=== PATIENT | female | born 1940 | race African-American/Black ===

== ENCOUNTER 2017-12-04 10:20 | Inpatient (IN) | payer OTHER ==
[~2017-12-04] VITALS: Ht 167.6 cm; Wt 90.7 kg
[~2017-12-04 10:20] MED LIST: ADVIL PM 38 MG-1 TAB PO; AMLODIPINE BESY10 M1 PO; AMLODIPINE BESY10 MG PO; ATENOLOL-CHLOR1 EAC1 PO; ATENOLOL/CHLORT1 TA1 PO; ATENOLOL25 MG PO; CELEBREX100 M1 PO; CELEBREX100 MG PO; CRESTOR 10MG10 MG PO; CRESTOR10 M1 PO; Compazine PO; DAILY VALUE1 EACH PO; K-TAB20 MEQ PO; LASIX20 M1 PO; MAGNESIUM OXID400 MG PO; MIRALAX17 G1 PO; PANTOPRAZOLE SO40 M1 PO; PANTOPRAZOLE SO40 MG PO; PEPCID 20MG TAB20 MG PO; PERCOCET 325 MG1 TA2 PO; POTASSIUM CHLO10 ME1 PO; POTASSIUM CHLO10 ME4 PO; PROAIR HFA0.09 MG/Ac; PROTONIX 20MG T20 MG PO; PROTONIX 40MG T40 MG PO; REGLAN10 MG PO; TRAMADOL HCL50 MG PO; VITAMIN D250000 UNIT PO; ZOFRAN 4 MG TABL4 MG PO; ZOFRAN ODT4 MG PO; ZOFRAN4 MG PO
[2017-12-04 11:36] LABS: ABSOLUTE BASOPHIL COUNT 0 /CUMM (0.0-0.2); ABSOLUTE EOSINOPHIL COUNT 0.1 /CUMM (0.0-0.7); ABSOLUTE GRANULOCYTE CT 7.9 /CUMM (1.4-6.5); ABSOLUTE MONOCYTE COUNT 0.7 /CUMM (0.10-0.60); BASOPHIL % 0.4 % (0.0-2.0); EOSINOPHIL % 0.6 % (0-5); GRANULOCYTE % 73.8 % (42.2-75.2); HEMATOCRIT 34.6 % (37-47); MEAN CORPUSCULAR HGB 28.5 PG (27.0-31.0); MEAN CORPUSCULAR HGB CONC 33.5 G/DL (33.0-37.0); MEAN CORPUSCULAR VOLUME 85.1 FL (81.0-99.0); MEAN PLATELET VOLUME 8.3 FL (7.4-10.4); PLATELET COUNT 256 /CUMM (130-400); RBC DISTRIBUTION WIDTH 13.9 % (11.5-14.5); RED BLOOD CELL CT 4.07 /CUMM (4.20-5.40); WHITE BLOOD CELL COUNT 10.7 /CUMM (4.8-10.8)
--- NOTE | 2017-12-04 12:44 | ED GI/GU/ABDOMINAL COMPLAINT ---
History of Present Illness General Chief Complaint: Nausea, Vomiting, Diarrhea Stated Complaint: N, V Source: patient Exam Limitations: no limitations Allergies Coded Allergies: Penicillins (RASH 12/04/17) Reconcile Medications Amlodipine Besylate 10 MG TABLET 1 TAB PO DAILY HIGH BLOOD PRESSURE (Reported ) Atenolol/Chlorthalidone (Atenolol-Chlorthalidone 50-25) 50 MG-25 MG TABLET 1 TAB PO DAILY HIGH BLOOD PRESSURE (Reported) Celecoxib (Celebrex) 100 MG CAPSULE 1 CAP PO BID ANTI-INFLAMMATORY (Reported) Ergocalciferol (Vitamin D2) (Vitamin D2) 50,000 UNIT CAPSULE 1 CAP PO QW VITAMIN SUPPORT (Reported) Furosemide (Lasix) 20 MG TABLET 1 TAB PO DAILY edema Multivitamin (Daily Value) 1 EACH TABLET 1 TAB PO DAILY VITAMIN SUPPORT ( Reported) Pantoprazole Sodium 40 MG TABLET.DR 1 TAB PO DAILY ACID REFLUX (Reported) Polyethylene Glycol 3350 (Miralax) 17 GRAM POWD.PACK 1 PAC PO DAILY CONSTIPATION (Reported) dissolve in water Potassium Chloride 10 MEQ TABLET.ER 1 TAB PO DAILY HEALTH SUPPLEMENT ( Reported) Rosuvastatin Calcium (Crestor) 10 MG TABLET 1 TAB PO DAILY HIGH CHOLESTROL ( Reported) Triage Note: BIBA TO ER WITH COMPLAINTS OF 3 DAYS N/V AND FEELING ACHEY ALL OVER, LAST VOMITTED AT 0200. STATES THAT ABD IS JUST SORE FROM VOMITTING. AFEBRILE Triage Nurses Notes Reviewed? yes LMP (ages 10-50): post menopausal ? N Is pt currently ? No Onset: Abrupt Duration: day(s): (3), changing over time, continues in ED Timing: multiple episodes today Quality/Severity: cramping, vomiting Severity Numbers: 6 Location: generalized abdomen Radiation: no radiation Activities at Onset: none Prior Abdominal Problems: none Past Sexual History: Unobtainable at this time No Modifying Factors: none Modifying Factors: Worsens With: vomiting. Associated Symptoms: abdominal pain, loss of appetite, nausea/vomiting HPI: 77 YEAR old female past medical history of hypertension, hyperlipidemia presents for evaluation of nausea vomiting diarrhea and abdominal pain. Patient states symptoms started about 3 days ago and have been persistent. She reports multiple episodes of vomiting and watery diarrhea. No blood no melena. She states that she has some diffuse abdominal or pain likely related to vomiting multiple times. She's not been able to eat and drink due to nausea. Has not taken any medicine for her symptoms. No recent travel no recent antibiotics or recent hospitalizations. No sick contacts. No fevers chest pain shortness of breath hemoptysis or lower extremity edema. (Kyrie Fregoso) Vital Signs & Intake/Output Vital Signs & Intake/Output Vital Signs Date Time Temp Pulse Resp B/P B/P Pulse O2 O2 Flow FiO2 Mean Ox Delivery Rate 12/04 1322 97.8 80 18 111/57 97 Room Air 12/04 1154 98.0 84 18 103/55 97 Room Air 12/04 1027 98.3 85 18 117/74 98 Room Air (Sonia LAI,Leo Dupree) Past History Travel History Traveled to [place] past 21 day No Medical History Any Pertinent Medical History? see below for history Neurological: NONE EENT: NONE Cardiovascular: hypertension, hyperlipidemia Respiratory: NONE Gastrointestinal: GERD, hiatal hernia, pancreatitis Hepatic: s/p open CCKY 1995. Renal: borderline low GFR. Musculoskeletal: osteoarthritis Psychiatric: NONE Endocrine: NONE Blood Disorders: NONE Cancer(s): NONE INCOME TAX EXPERT/Reproductive: . History of MRSA: No History of VRE: No History of CDIFF: No Surgical History Surgical History: cholecystectomy (open 1995), , left hip arthroplasty Psychosocial History Who do you live with Family Services at Home None What is your primary language Italian Tobacco Use: Never used ETOH Use: denies use Illicit Drug Use: denies illicit drug use Family History Family History, If Any: MOTHER, , Age 82; Cause: Diabetes. FATHER (Hx EtOH). , Age 98; Cause: Old age. BROTHER (Ca - type unknown.). SISTER (Ca - type unknown.). Hx Contributory? No (Kyrie Fregoso) Review of Systems Review of Systems Constitutional: Reports: malaise, weakness. EENTM: Reports: no symptoms. Respiratory: Reports: no symptoms. Cardiovascular: Reports: no symptoms. GI: Reports: see HPI, abdominal pain, diarrhea, nausea, vomiting. Genitourinary: Reports: no symptoms. Musculoskeletal: Reports: no symptoms. Skin: Reports: no symptoms. Neurological/Psychological: Reports: no symptoms. Hematologic/Endocrine: Reports: no symptoms. Immunologic/Allergic: Reports: no symptoms. All Other Systems: Reviewed and Negative (Kyrie Fregoso) Physical Exam Physical Exam General Appearance: well developed/nourished, no apparent distress, alert, awake Head: atraumatic, normal appearance Eyes: Bilateral: normal appearance, PERRL, EOMI, normal inspection. Ears, Nose, Throat, Mouth: hearing grossly normal, moist mucous membrane Neck: normal inspection, supple, full range of motion Respiratory: normal breath sounds, chest non-tender, no respiratory distress, lungs clear Cardiovascular: regular rate/rhythm, normal peripheral pulses Peripheral Pulses: 2+ radial (R), 2+ radial (L) Gastrointestinal: normal bowel sounds, soft, no organomegaly, tenderness ( DIFFUSE) Back: normal inspection, normal range of motion, no vertebral tenderness Extremities: normal range of motion Neurologic/Psych: no motor/sensory deficits, awake, alert, oriented x 3, normal gait Skin: intact, normal color, warm/dry Core Measures ACS in differential dx? No Sepsis Present: No Sepsis Focused Exam Completed? No (Nicholas NEUMANN,Kyrie) Progress Differential Diagnosis: appendicitis, biliary colic, bowel obstruction, colon cancer, cholecystitis, diverticulitis, gastritis, kidney stone, pancreatitis, PID/cervicitis, peptic ulcer, PUD/GERD, SBO, COLITIS, DIVERTICULITIS, VIRAL GASTROENTERITIS Diagnostic Imaging: Viewed by Me: CT Scan. Discussed w/RAD: CT Scan. Radiology Impression: PATIENT: LUCIO CONLEY PRESENT AGE: 77 PATIENT ACCOUNT NO: [id number] : 41 LOCATION: [facility] ORDERING PHYSICIAN: Kyrie NEUMANN SERVICE DATE: 12/04/17 EXAM TYPE: CAT - CT ABD & PELVIS W/O IV CONTRAS EXAMINATION: CT ABDOMEN AND PELVIS WITHOUT CONTRAST CLINICAL INFORMATION: Nausea, vomiting, diarrhea. Diffuse abdominal pain. Presumptive diagnosis of small bowel obstruction, colitis, diverticulitis. COMPARISON: CT scan of the abdomen and pelvis dated 11/17/2015 and 10/30/2015. TECHNIQUE: Multidetector volumetric imaging was performed from the superior aspect of the liver through the pubic symphysis. Sagittal and coronal reformatted images were obtained on the technologist workstation. DLP: 660.58 mGy-cm. FINDINGS: LUNG BASES: Mild bibasilar subsegmental atelectasis. Included portions of the cardiac silhouette appear enlarged. LIVER, GALLBLADDER, AND BILIARY TREE: The liver is normal in size, shape, and attenuation. No focal hepatic lesion on noncontrast imaging. No biliary ductal dilatation is present. The gallbladder is surgically absent. PANCREAS: Unremarkable on noncontrast imaging. SPLEEN, ADRENAL GLANDS: Unremarkable on noncontrast imaging. KIDNEYS AND URETERS: The kidneys are normal in size, shape, and attenuation. No hydronephrosis, hydroureter, or calculi seen. No perinephric stranding. BLADDER: Unremarkable. PELVIC VISCERA: Unremarkable. GASTROINTESTINAL TRACT: [place] seen in the epigastric region from previous hernia repair. The small and large bowel are unremarkable. The appendix is unremarkable. ABDOMINAL WALL: No significant hernia is appreciated. LYMPH NODES, VASCULAR: Unremarkable. OSSEOUS STRUCTURES: Total left hip arthroplasty is in place causing surrounding beam hardening artifact and limiting assessment. 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 IMPRESSION: 1. No acute intra- abdominal or pelvic process seen to explain the patient's acute symptoms. Specifically, no evidence of bowel obstruction, colitis or diverticulitis. 2. Status post cholecystectomy with no evidence of biliary dilatation. 3. Changes related to prior gastric hernia repair and total left hip arthroplasty noted. DICTATED BY: Danyelle LAI,Gunjan Funez DATE/TIME DICTATED:12/04/171319 INSPECTOR COLD WORKING:ERIC DATE/TIME TRANSCRIBED:12/04/171319 Initial ED EKG: normal sinus rhythm, FIRST-DEGREE av BLOCK, NONSPECIFIC INTRAVENTRICULAR CONDUCTION DELAY, ANTERIOR INFARCT AGE INDETERMINATE (Nicholas NEUMANN,Kyrie) Plan of Care: Orders Procedure Date/time Status BASIC METABOLIC PANEL 12/04 1352 Active Add-on Test (ER Only) 12/04 1202 Active EKG 12/04 1202 Active Add-on Test (ER Only) 12/04 1148 Active TROPONIN LEVEL 12/04 1126 Complete MAGNESIUM 12/04 1126 Complete LIPASE 12/04 1126 Complete URINALYSIS 12/04 1113 Active RAPID VIRAL INFLUENZA A 12/04 1029 Complete LACTIC ACID 12/04 1029 Complete COMPREHENSIVE METABOLIC PANEL 12/04 1029 Complete CBC WITHOUT DIFFERENTIAL 12/04 1029 Complete Laboratory Tests 12/04/17 1329: Lactic Acid Cancelled 12/04/17 1126: Anion Gap 16, Estimated GFR 27 L, BUN/Creatinine Ratio 16.1, Glucose 111 H, Lactic Acid 1.4, Calcium 9.1, Magnesium 2.1, Total Bilirubin 0.5, AST 24, ALT 18 , Alkaline Phosphatase 113, Troponin I < 0.01, Total Protein 8.0, Albumin 4.4, Globulin 3.6, Albumin/Globulin Ratio 1.2, Lipase 70, CBC w Diff NO MAN DIFF REQ, RBC 4.07 L, MCV 85.1, MCH 28.5, MCHC 33.5, RDW 13.9, MPV 8.3, Gran % 73.8, Lymphocytes % 18.3 L, Monocytes % 6.9, Eosinophils % 0.6, Basophils % 0.4, Absolute Granulocytes 7.9 H, Absolute Lymphocytes 2.0, Absolute Monocytes 0.7 H, Absolute Eosinophils 0.1, Absolute Basophils 0 Microbiology 12/04 1031 NASOPHARYN: Influenza Virus A & B Rapid Smear - COMP Patient seen and evaluated. She is reporting multiple episodes of nausea vomiting and diarrhea. Vital signs are stable. Blood work shows an elevated BUN/creatinine related to her normal. She usually runs in the low 1.1-1.0 range. She is currently 1.8 today. She is also hypokalemic at 2.5. She was given a liter of normal saline 40 mEq of by mouth potassium and 10 mEq IV potassium. A repeat potassium was ordered at [address] scan of the abdomen and pelvis does not show any acute findings. Patient is feeling somewhat better after IV Zofran and IV Tylenol. She has not been able tolerate by mouth here. Patient will be admitted to the hospital for further evaluation and treatment of acute kidney injury hypokalemia and nausea vomiting and diarrhea. She'll require IV fluids, potassium replacement, serial labs, IV antiemetics, pain control, serial abdominal exams and monitoring of vital signs. Case discussed with Dr. Scott he agrees. (Nicholas NEUMANN,Kyrie) (Sonia LAI,Leo Dupree) Departure Departure Disposition: STILL A PATIENT Condition: Stable Clinical Impression Primary Impression: Acute kidney injury Secondary Impressions: Hypokalemia, Nausea vomiting and diarrhea Referrals: Nadira Elizabeth APRN (PCP/Family) Departure Forms: Customer Survey General Discharge Information Admission Note Spoke With: Cecil LAI,Laurita Documentation of Exam: Documentation of any treatments & extenuating circumstances including Concerns Regarding Discharge (functional status, medication knowledge or non-compliance, living conditions, etc.) that warrant an admission rather than observation: [ Serial labs, IV fluids, IV antiemetics, potassium replacement, monitoring of vital signs, serial abdominal exams] (Kyrie Fregoso) PA/SLIDE ATTENDANT Co-Sign Statement Statement: ED Attending supervision documentation- [X] I saw and evaluated the patient. I have also reviewed all the pertinent lab results and diagnostic results. I agree with the findings and the plan of care as documented in the PA's/SLIDE ATTENDANT's documentation. Patient presents for evaluation of sudden onset of nausea vomiting and diarrhea. Physical examination reveals a somewhat tired appearing patient in no acute respiratory distress. Patient's color is normal and she is not diaphoretic. [] I have reviewed the ED Record and agree with the PA's/SLIDE ATTENDANT's documentation. [] Additions or exceptions (if any) to the PAs/SLIDE ATTENDANT's note and plan are summarized below: [] (Sonia LAI,Leo Dupree)
--- NOTE | 2017-12-04 13:34 | CT SCAN REPORT ---
EXAMINATION: CT ABDOMEN AND PELVIS WITHOUT CONTRAST CLINICAL INFORMATION: Nausea, vomiting, diarrhea. Diffuse abdominal pain. Presumptive diagnosis of small bowel obstruction, colitis, diverticulitis. COMPARISON: CT scan of the abdomen and pelvis dated 11/17/2015 and 10/30/2015. TECHNIQUE: Multidetector volumetric imaging was performed from the superior aspect of the liver through the pubic symphysis. Sagittal and coronal reformatted images were obtained on the technologist workstation. DLP: 660.58 mGy-cm. FINDINGS: LUNG BASES: Mild bibasilar subsegmental atelectasis. Included portions of the cardiac silhouette appear enlarged. LIVER, GALLBLADDER, AND BILIARY TREE: The liver is normal in size, shape, and attenuation. No focal hepatic lesion on noncontrast imaging. No biliary ductal dilatation is present. The gallbladder is surgically absent. PANCREAS: Unremarkable on noncontrast imaging. SPLEEN, ADRENAL GLANDS: Unremarkable on noncontrast imaging. KIDNEYS AND URETERS: The kidneys are normal in size, shape, and attenuation. No hydronephrosis, hydroureter, or calculi seen. No perinephric stranding. BLADDER: Unremarkable. PELVIC VISCERA: Unremarkable. GASTROINTESTINAL TRACT: [place] seen in the epigastric region from previous hernia repair. The small and large bowel are unremarkable. The appendix is unremarkable. ABDOMINAL WALL: No significant hernia is appreciated. LYMPH NODES, VASCULAR: Unremarkable. OSSEOUS STRUCTURES: Total left hip arthroplasty is in place causing surrounding beam hardening artifact and limiting assessment. 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 IMPRESSION: 1. No acute intra-abdominal or pelvic process seen to explain the patient's acute symptoms. Specifically, no evidence of bowel obstruction, colitis or diverticulitis. 2. Status post cholecystectomy with no evidence of biliary dilatation. 3. Changes related to prior gastric hernia repair and total left hip arthroplasty noted.
--- NOTE | 2017-12-04 14:09 | History & Physical ---
Quinn Sher MD,[facility] 12/04/17 1401: General Information and HPI MD Statement: I have seen and personally examined LUCIO CONLEY and documented this H&P. The patient is a 77 year old F who presented with a patient stated chief complaint of [nausea vomiting, abdominal pain]. History of Present Illness: Patient is 77 y/o A/A lady w/ a PMH of HTN, HLD, osteoarthritis, laparascopic fundoplicatoin and GERD, pancreatitis, cholecystectomy (opem 1995), chronic pericardial effusion , presented to the ED with nausea and vomiting, abdominal pain or loss of appetite. Brother were present at the bedside, however most of history was taken from patient. Briefly patient was in usual state of health until 3 days ago, that she started to have nausea and vomiting (last one 2 AM - nonbloody, nonbilious), loose stools (2 times yesterday, one time this morning, nonbloody watery) and generalized weakness. She also reported generalized abdominal pain (sourness), severity as max of 7/10, cramping with no radiation, with no alievating or aggravating factors. She also reported decreased appetite and poor po intake. Patient denied eating outside or anything other than her usual diet. No fever or chills, no shortness of breathing, no chest pain. She had heart burning in the past wich improved after the surgery in Oct 2015. Patient had 2 more hospitalization with similar presentation last being in Oct 2015 when she under went Laparoscopic paraesophageal hernia repair w toupet fundoplication due to giant paraesophageal herna in Oct 2015 (patient had max creatinine of 1.3 at time of admission). She noted to follow Dr Schultz for blood pressure and chronic pericardial effusion. Patient denied smoking and reported a remote history of alcohol abuse but quited 20 years ago. She lives alone and is relatively independent. Allergies/Medications Allergies: Coded Allergies: Penicillins (RASH 12/04/17) Home Med list Amlodipine Besylate 10 MG TABLET 1 TAB PO DAILY HIGH BLOOD PRESSURE (Reported ) Atenolol/Chlorthalidone (Atenolol-Chlorthalidone 50-25) 50 MG-25 MG TABLET 1 TAB PO DAILY HIGH BLOOD PRESSURE (Reported) Celecoxib (Celebrex) 100 MG CAPSULE 1 CAP PO BID ANTI-INFLAMMATORY (Reported) Ergocalciferol (Vitamin D2) (Vitamin D2) 50,000 UNIT CAPSULE 1 CAP PO QW VITAMIN SUPPORT (Reported) Furosemide (Lasix) 20 MG TABLET 1 TAB PO DAILY edema Multivitamin (Daily Value) 1 EACH TABLET 1 TAB PO DAILY VITAMIN SUPPORT ( Reported) Pantoprazole Sodium 40 MG TABLET.DR 1 TAB PO DAILY ACID REFLUX (Reported) Polyethylene Glycol 3350 (Miralax) 17 GRAM POWD.PACK 1 PAC PO DAILY CONSTIPATION (Reported) dissolve in water Potassium Chloride 10 MEQ TABLET.ER 1 TAB PO DAILY HEALTH SUPPLEMENT ( Reported) Rosuvastatin Calcium (Crestor) 10 MG TABLET 1 TAB PO DAILY HIGH CHOLESTROL ( Reported) Past History Travel History Traveled to [place] past 21 day No Medical History Neurological: NONE EENT: NONE Cardiovascular: hypertension, hyperlipidemia Respiratory: NONE Gastrointestinal: GERD, hiatal hernia, pancreatitis Hepatic: s/p open CCKY 1995. Renal: borderline low GFR. Musculoskeletal: osteoarthritis Psychiatric: NONE Endocrine: NONE Blood Disorders: NONE Cancer(s): NONE FUSE CUTTER/Reproductive: . History of MRSA: No History of VRE: No History of CDIFF: No Surgical History Surgical History: cholecystectomy (open 1995), , left hip arthroplasty Past Family/Social History Family History Relations & Conditions if any MOTHER, , Age 82; Cause: Diabetes. FATHER (Hx EtOH). , Age 98; Cause: Old age. BROTHER (Ca - type unknown.). SISTER (Ca - type unknown.). Psychosocial History Who Do You Live With? self Services at Home: None Primary Language: Barbadian ETOH Use: denies use Illicit Drug Use: denies illicit drug use Living Will? unknown Power of Chain Sales Representative/HCP? unknown Functional Ability ADLs Independent: dressing, eating, toileting, bathing. Ambulation: cane IADLs Independent: shopping, housework, finances, food prep, telephone, transportation , medication admin. Sexual History Past Sexual History Unobtainable at this time Review of Systems Review of Systems Constitutional: Reports: see HPI. Exam & Diagnostic Data Last 24 Hrs of Vital Signs/I&O Vital Signs Date Time Temp Pulse Resp B/P B/P Pulse O2 O2 Flow FiO2 Mean Ox Delivery Rate 12/04 1526 97.4 77 18 105/78 95 Room Air 12/04 1322 97.8 80 18 111/57 97 Room Air 12/04 1154 98.0 84 18 103/55 97 Room Air 12/04 1027 98.3 85 18 117/74 98 Room Air Intake & Output 12/04 1600 12/04 0800 12/04 0000 Intake Total 1000 Output Total Balance 1000 Intake, IV 1000 Patient 200 lb Weight Physical Exam General Appearance Alert, Oriented X3, Cooperative, No Acute Distress Skin No Significant Lesion Skin Temp/Moisture Exam: Warm/Dry Sepsis Skin Exam (color): Normal for Ethnicity HEENT Atraumatic, EOMI, Mucous membrane relatively dry Cardiovascular muffled heart sounds Lungs Clear to Auscultation, Normal Air Movement Abdomen Soft, generalized tenderness in deep palpation, no significant epigastric tenderness. Neurological Normal Speech, Strength at 5/5 X4 Ext Extremities No Edema Last 24 Hrs of Labs/Augustus: Laboratory Tests 12/04/17 1423: Anion Gap 10, Estimated GFR 34 L, BUN/Creatinine Ratio 16.0, Glucose 92, Calcium 8.4 12/04/17 1329: Lactic Acid Cancelled 12/04/17 1126: Anion Gap 16, Estimated GFR 27 L, BUN/Creatinine Ratio 16.1, Glucose 111 H, Lactic Acid 1.4, Calcium 9.1, Magnesium 2.1, Total Bilirubin 0.5, AST 24, ALT 18 , Alkaline Phosphatase 113, Troponin I < 0.01, Total Protein 8.0, Albumin 4.4, Globulin 3.6, Albumin/Globulin Ratio 1.2, Lipase 70, CBC w Diff NO MAN DIFF REQ, RBC 4.07 L, MCV 85.1, MCH 28.5, MCHC 33.5, RDW 13.9, MPV 8.3, Gran % 73.8, Lymphocytes % 18.3 L, Monocytes % 6.9, Eosinophils % 0.6, Basophils % 0.4, Absolute Granulocytes 7.9 H, Absolute Lymphocytes 2.0, Absolute Monocytes 0.7 H, Absolute Eosinophils 0.1, Absolute Basophils 0 Microbiology 12/04 1031 NASOPHARYN: Influenza Virus A & B Rapid Smear - COMP Assessment/Plan Assessment: Patient is 77 y/o A/A lady w/ presented with nausea and vomiting, abdominal pain or loss of appetite PMH: HTN, HLD, osteoarthritis, laparascopic fundoplicatoin and GERD, pancreatitis, cholecystectomy (opem 1995), chronic pericardial effusion VS, Ph Ex at admission: No fever, BP 11 7/74, IA 85, RR 18, saturating in room air Labs at admission: CBC: Hgb 11.6, WBC 10.7 BEP: Potassium 2.5, sodium 145, chloride 94, bicarbonate 34, anion gap 16, BUN 29, creatinine 1.8, BUN over creatinine 16.1, LFT and lipase insignificant, Imagings at admission: Abdominal/pelvic CT: 1. No acute intra-abdominal or pelvic process seen to explain the patient's acute symptoms. Specifically, no evidence of bowel obstruction, colitis or diverticulitis. 2. Status post cholecystectomy with no evidence of biliary dilatation. 3. Changes related to prior gastric hernia repair and total left hip arthroplasty noted. Patient was admitted to [facility] floor for management of following conditions: [place], [place], loose stools most likely gastroenteritis. - admit to floor - IV zofran - start Gentle IV fluids - clear liq diet for now - IV PPI IVÁN VS CKD We dont have Cr for the last 6 months, patient had history of IVÁN vs CKD. Most likely prerenal, BUN/creatinine is borderline. we will get urine lytes, interpretation would be tricky considering patient is on diuretics. - follow Urine analysis - continue gentle hydration - Urine lytes - Consider Urine urea - Hold diuretics Hypokalemia, hypochloremic, metabolic alkalosis Metabolic alkalosis Most likely a setting of multiple vomiting. -Gentle IV fluids with NS - IV potasium 40 Meq (to repeat in the evening) -we will follow Chronic medical conditions: we will continue home medication except as noted above FC health healthy DVT PPx: As Ranked By This Provider Problem List: 1. ACUTE RENAL FAILURE 2. Acute kidney injury 3. Nausea vomiting and diarrhea Core Measures/Misc (06/22) Acute Coronary Syndrome ACS Diagnosis: No Congestive Heart Failure Congestive Heart Failure Diagnosis No Cerebrovascular Accident CVA/TIA Diagnosis: No VTE (View Protocol) VTE Risk Factors Age>40 No Mechanical VTE Prophylaxis d/t N/A MechProphylax Ordered No VTE Pharm Prophylaxis d/t NA PharmProphylax ordered Sepsis (View protocol) Sepsis Present: No Haim LAI,Yordan 12/04/17 1430: Resident Review Statement Resident Statement: discussed with spring intern, agreed with spring intern Other Findings: 75 yo lady with a significant GI history GERD, gastritis, s/p Laparascopic paraesophageal hernia repair with toupet fundoplication due to Giant paraesophageal hernia, present with 3 days acute onset of nausea and non bloody vomitus and diarrhea. Afebrile at presentation with no leukocytosis. CT imaging unremarkable for any acute infectious or inflammatory pathology. Impression * Acute gastroenteritis as evident by 3 days onset of non bloody vomitus and diarrhea. Probably viral infectious gastroeneteritis. * IVÁN as evident by patient todays creatinine level of 1.8, her lifetime record indicate an average baseline of 0.8. Etiology most likely prerenal in the setting of hypovolemia from the vomiting. Diuretic use (lasix and chlorthalidone ) could be contributory. * Hypokalemia. Most likely secondary to vomiting episodes exacerbated by the diuretic use (lasix and chlorthalidone) * Metabolic alkalosis. Hypochloremic hypokalemic metabolic alkalosis presentation is consistent with patient symptoms of vomiting and diarrhhea. Contraction alkalosis from furosemide use is also a possibility. Plan Admit to [facility] floor Clear liquids for now Normal saline 75 ml/hr x1 bag(EF not known and patient is on Lasix which was prescribed by carpet winder). Encourage po fluid intake Aggresive replenishmnet and monitoring of electrolytes s/p Potassium 40 meq and 10 meq IV, will give 40 meq again and recheck BEP in 4 -6 hours. In the setting of IVÁN, we will need to be cautious and try to avoid overcorrection. IV protonix Hold Furosemide and Chlorthalidone in the setting of IVÁN and hypokalemia. dvt ppx: Heparin SC CODE Status: JOE Lored[place] 12/04/17 1457: Attending MD Review Statement Attending Statement Attending MD Statement: examined this patient, discuss w/resident/PA/SPOOLER OPERATOR AUTOMATIC, agreed w/resident/PA/SPOOLER OPERATOR AUTOMATIC, discussed with family, reviewed EMR data (avail), discussed with nursing, discussed with case mgmt, reviewed images, amended to note
--- NOTE | 2017-12-04 15:30 | PN- Student ---
Subjective Subjective: CHIEF COMPLAINT: Nausea,vomitting and diarrhea for past 3 days Subject: Yeimy Gerber is a 77 y/o AA female with a past medical history of HTN,HLD,GERD ,pancreatitis, hiatal hernia w.laparoscopic fundoplication (2015), cholecystectomy ([id number]) who presented to the ED with complaints of nausea, vomitting and diarrhea for the past 3 days.Patient complains that her abdomen is sore expecially after vomitting and rates the pain as 7/10.There are no alleviating or aggrevating factors.Patient reports that she vomits 3 times a day , the last episode was 2am this morning.She describes the vomit as clear,non bloody and non bilious.She also reports that she has been having episodes of watery ,non bloody,non foul smelling stools. Patient denies having ate any outside food ,frozen food,seafood or recent changes in diet.She has no sick contacts at home. Patient is followed by for blood pressure and chronic pericardial effusion. Allergy: Penicillin (Rash 12/04/17) Review of Systems Review of Systems Constitutional: Reports: malaise, weakness. Denies: chills, diaphoresis, fever. EENTM: Denies: no symptoms. Cardiovascular: Denies: chest pain, palpitations. Respiratory: Denies: short of breath. GI: Reports: abdominal pain, diarrhea, nausea, changes in stool, vomiting. Genitourinary: Reports: no symptoms. Musculoskeletal: Reports: no symptoms. Past History Travel History Traveled to [place] past 21 day No Medical History Cardiovascular: hypertension, hyperlipidemia Gastrointestinal: GERD, hiatal hernia, pancreatitis Musculoskeletal: osteoarthritis Surgical History Surgical History: cholecystectomy, , hernia repair-incisional, left hip arthroplasty Family History Relations & Conditions If Any: MOTHER, , Age 82; Cause: Diabetes. FATHER (Hx EtOH). , Age 98; Cause: Old age. BROTHER (Ca - type unknown.). SISTER (Ca - type unknown.). Psychosocial History Where Do You Live? Home Primary Language: Vietnamese Smoking Status: Never Smoked ETOH Use: Alchol abuse in past,sober last 20 years Illicit Drug Use: denies illicit drug use Living Will? unknown Functional Ability ADLs Independent: dressing, eating, toileting, bathing. Objective Objective: Vital Signs Date Time Temp Pulse Resp B/P B/P Pulse O2 O2 Flow FiO2 Mean Ox Delivery Rate 12/04 1526 97.4 77 18 105/78 95 Room Air 12/04 1322 97.8 80 18 111/57 97 Room Air 12/04 1154 98.0 84 18 103/55 97 Room Air 12/04 1027 98.3 85 18 117/74 98 Room Air Intake & Output 12/04 1600 12/04 0800 12/04 0000 Intake Total 1000 Output Total Balance 1000 Intake, IV 1000 Patient 200 lb Weight Current Medications Sig/Jose Start time Last Medication Dose Stop Time Status Admin Atorvastatin Calcium 40 MG 1700 12/05 1700 AC (Lipitor) Atenolol 50 MG DAILY 12/05 1000 CAN (Tenormin) Atenolol 50 MG DAILY 12/05 1000 AC (Tenormin) Heparin Sodium 5,000 UNIT Q8 12/05 0600 AC (Porcine) Acetaminophen 500 MG Q6P PRN 12/04 1600 AC (Tylenol) Sodium Chloride 1,000 ML Q13H 12/04 1545 AC (Normal Saline 0.9%) 12/05 0444 Ondansetron HCl 4 MG Q6P PRN 12/04 1430 AC (Zofran) Pantoprazole Sodium 40 MG DAILY 12/04 1430 AC 12/04 (Protonix) 1442 Results Results: Laboratory Tests 12/04/17 1423: Anion Gap 10, Estimated GFR 34 L, BUN/Creatinine Ratio 16.0, Glucose 92, Calcium 8.4 12/04/17 1329: Lactic Acid Cancelled 12/04/17 1126: Anion Gap 16, Estimated GFR 27 L, BUN/Creatinine Ratio 16.1, Glucose 111 H, Lactic Acid 1.4, Calcium 9.1, Magnesium 2.1, Total Bilirubin 0.5, AST 24, ALT 18 , Alkaline Phosphatase 113, Troponin I < 0.01, Total Protein 8.0, Albumin 4.4, Globulin 3.6, Albumin/Globulin Ratio 1.2, Lipase 70, CBC w Diff NO MAN DIFF REQ, RBC 4.07 L, MCV 85.1, MCH 28.5, MCHC 33.5, RDW 13.9, MPV 8.3, Gran % 73.8, Lymphocytes % 18.3 L, Monocytes % 6.9, Eosinophils % 0.6, Basophils % 0.4, Absolute Granulocytes 7.9 H, Absolute Lymphocytes 2.0, Absolute Monocytes 0.7 H, Absolute Eosinophils 0.1, Absolute Basophils 0 Microbiology 12/04 1031 NASOPHARYN: Influenza Virus A & B Rapid Smear - COMP Microbiology Date/Time Procedure - Status Source Growth 12/04 1031 Influenza Virus A & B Rapid Smear - COMP NASOPHARYN Imaging: EXAM TYPE: CAT - CT ABD & PELVIS W/O IV CONTRAS EXAMINATION: CT ABDOMEN AND PELVIS WITHOUT CONTRAST CLINICAL INFORMATION: Nausea, vomiting, diarrhea. Diffuse abdominal pain. Presumptive diagnosis of small bowel obstruction, colitis, diverticulitis. COMPARISON: CT scan of the abdomen and pelvis dated 11/17/2015 and 10/30/2015. TECHNIQUE: Multidetector volumetric imaging was performed from the superior aspect of the liver through the pubic symphysis. Sagittal and coronal reformatted images were obtained on the technologist workstation. DLP: 660.58 mGy-cm. FINDINGS: LUNG BASES: Mild bibasilar subsegmental atelectasis. Included portions of the cardiac silhouette appear enlarged. LIVER, GALLBLADDER, AND BILIARY TREE: The liver is normal in size, shape, and attenuation. No focal hepatic lesion on noncontrast imaging. No biliary ductal dilatation is present. The gallbladder is surgically absent. PANCREAS: Unremarkable on noncontrast imaging. SPLEEN, ADRENAL GLANDS: Unremarkable on noncontrast imaging. KIDNEYS AND URETERS: The kidneys are normal in size, shape, and attenuation. No hydronephrosis, hydroureter, or calculi seen. No perinephric stranding. BLADDER: Unremarkable. PELVIC VISCERA: Unremarkable. GASTROINTESTINAL TRACT: Tuthill seen in the epigastric region from previous hernia repair. The small and large bowel are unremarkable. The appendix is unremarkable. ABDOMINAL WALL: No significant hernia is appreciated. LYMPH NODES, VASCULAR: Unremarkable. OSSEOUS STRUCTURES: Total left hip arthroplasty is in place causing surrounding beam hardening artifact and limiting assessment. 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 IMPRESSION: 1. No acute intra-abdominal or pelvic process seen to explain the patient's acute symptoms. Specifically, no evidence of bowel obstruction, colitis or diverticulitis. 2. Status post cholecystectomy with no evidence of biliary dilatation. 3. Changes related to prior gastric hernia repair and total left hip arthroplasty noted. Physical Exam Physical Exam General Appearance: alert, awake, mild distress Head: normal appearance Ears, Nose, Throat: normal pharynx (dry mucus membranes) Neck: full range of motion Respiratory: no respiratory distress, lungs clear Cardiovascular: muffled heart sounds Gastrointestinal: soft, tenderness Extremities: normal range of motion, no edema Core Measures ACS in differential dx? No CVA/TIA Diagnosis: No Sepsis Present: No Sepsis Focused Exam Completed? No Assessment/Plan Assessment: Patient is 77 y/o A/A lady w/ a PMH of HTN, HLD, osteoarthritis, laparascopic fundoplicatoin and GERD, pancreatitis, cholecystectomy (opem 1995), chronic pericardial effusion , presented to the ED with nausea and vomiting, abdominal pain or loss of appetite. Problem List: [place], vomiting, diarrhea Hypokalemia, hypochloremic, metabolic alkalosis Possible IVÁN Plan: [place], vomiting, diarrhea Given the patients non specific findings and contributing factors a preliminary diagnosis of gastroenteritis is highly possible. -Admit to General Medicine floor -IV Zofran for nausea -IV fluids for hydration -IV PPI -clear liquid diet if tolerated Hypokalemia, hypochloremic, metabolic alkalosis Metabolic alkalosis most attributable to patients recent episodes of multiple vommiting and diarrhea over the last 3 days. -IV normal saline to correct dehydration and hypochloremia -IV potassium -continue to trend BMP Possible IVÁN Rise in creatinine and BUN/CR ratio can be attributable to dehydration and hypovolemia leading to an acute pre renal azootemia.Cr levels for the last 6 months are not available to guage the patients baseline Cr. -UA (might be tricky to interpret given patients diuretic use) -urine lytes -Iv hydration -urine urea -hold diuretics and all nephrotoxic drugs Diet:Clear Liquid Code:FULL Dvt prophylaxsis:Heparin
[2017-12-04 21:34] VITALS: BP 131/73
[2017-12-05 07:50] VITALS: BP 113/65
[2017-12-05 08:02] LABS: ABSOLUTE BASOPHIL COUNT 0 /CUMM (0.0-0.2); ABSOLUTE EOSINOPHIL COUNT 0.3 /CUMM (0.0-0.7); ABSOLUTE GRANULOCYTE CT 5.5 /CUMM (1.4-6.5); ABSOLUTE LYMPH COUNT 2.7 /CUMM (1.2-3.4); ABSOLUTE MONOCYTE COUNT 0.4 /CUMM (0.10-0.60); BASOPHIL % 0.5 % (0.0-2.0); EOSINOPHIL % 3.3 % (0-5); GRANULOCYTE % 61.8 % (42.2-75.2); HEMATOCRIT 31.3 % (37-47); MEAN CORPUSCULAR HGB 29.2 PG (27.0-31.0); MEAN CORPUSCULAR HGB CONC 33.4 G/DL (33.0-37.0); MEAN CORPUSCULAR VOLUME 87.4 FL (81.0-99.0); MEAN PLATELET VOLUME 8.8 FL (7.4-10.4); PLATELET COUNT 197 /CUMM (130-400); RED BLOOD CELL CT 3.58 /CUMM (4.20-5.40); WHITE BLOOD CELL COUNT 8.8 /CUMM (4.8-10.8)
--- NOTE | 2017-12-05 08:47 | PN- Housestaff ---
See Addendum Subjective Follow-up For: Gastroenteritis IVÁN Vs CKD Hyperkalemia-resolved Chronic pericardial effusion Subjective: Patient visited today, was lying in bed comfortably in no acute distress, was alert and oriented. Had 3 bowel movements overnight, last one this morning 5 am. reported overall prudent symptoms including abdominal pain, however he still had generalized "soreness in the belly". No fever or chills, no shortness of breathing, no chest pain, no other events. We will get s/e and urine analysis. Review of Systems Constitutional: Reports: see HPI. Objective Last 24 Hrs of Vital Signs/I&O Vital Signs Date Time Temp Pulse Resp B/P B/P Pulse O2 O2 Flow FiO2 Mean Ox Delivery Rate 12/05 1413 98.1 68 20 108/68 96 12/05 0945 68 112/68 12/05 0750 97.9 69 18 113/65 96 Room Air 12/04 2134 98.7 74 20 131/73 95 Room Air 12/04 1733 98.3 73 16 112/61 94 Room Air 12/04 1526 97.4 77 18 105/78 95 Room Air Intake & Output 12/05 1600 12/05 0800 12/05 0000 Intake Total 600 500 Output Total 650 2 Balance -650 600 498 Intake, IV 600 Intake, Oral 500 Number 1 2 Bowel Movements Output, Stool 2 Output, Urine 650 Patient 200 lb Weight Physical Exam General Appearance: Alert, Oriented X3, Cooperative, No Acute Distress Skin: No Significant Lesion Skin Temp/Moisture Exam: Warm/Dry HEENT: Atraumatic, EOMI Cardiovascular: muffled heart sounds Lungs: Normal Air Movement Abdomen: no tenderness Neurological: Normal Speech, Strength at 5/5 X4 Ext Current Medications: Current Medications Sig/Jsoe Start time Last Medication Dose Route Stop Time Status Admin Acetaminophen 500 MG Q6P PRN 12/04 1600 AC PO Atenolol 50 MG DAILY 12/05 1000 CAN PO Atenolol 50 MG DAILY 12/05 1000 AC 12/05 PO 0945 Atorvastatin Calcium 40 MG 1700 / 1700 AC PO Heparin Sodium 5,000 UNIT Q8 12/05 0600 AC 12/05 (Porcine) SC 1327 Melatonin 5 MG AT BEDTIME 12/05 2200 AC PO Omeprazole 40 MG DAILY AC 12/06 0700 AC PO Ondansetron HCl 4 MG Q6P PRN 12/04 1430 AC IV Pantoprazole Sodium 40 MG DAILY 12/04 1430 DC 12/05 IV 0942 Patient Medication 1 ED ONE ONE 12/05 1315 DC Teaching ED 12/05 1316 Potassium Chloride 80 MEQ ONCE ONE 12/04 2245 DC 12/04 PO 12/04 2246 2258 Potassium Chloride 10 MEQ Q1H 12/04 2245 DC 12/05 IV 12/04 2346 0129 Potassium Chloride 80 MEQ ONCE ONE 12/04 2245 CAN PO 12/04 2246 Potassium Chloride 10 MEQ Q1H 12/04 2245 DC IV 12/04 2346 Potassium Chloride 40 MEQ ONCE ONE 12/04 1600 DC 12/04 PO 12/04 1601 1533 Potassium Chloride 0 .STK-MED ONE 12/04 1535 DC PO Sodium Chloride 1,000 ML Q13H 12/04 1545 DC 12/04 IV 12/05 0444 1726 Last 24 Hrs of Lab/Augustus Results Last 24 Hrs of Labs/Mics: Laboratory Tests 12/05/17 1245: Urine Color YEL, Urine Clarity CLEAR, Urine pH 7.5, Ur Specific [place] 1.015, Urine Protein NEG, Urine Ketones NEG, Urine Nitrite NEG, Urine Bilirubin NEG, Urine Urobilinogen 0.2, Ur Leukocyte Esterase NEG, Ur Microscopic EXAM NOT REQUIRED, Urine Hemoglobin NEG, Urine Glucose NEG 12/05/17 0712: Anion Gap 10, Estimated GFR 48 L, BUN/Creatinine Ratio 12.7, CBC w Diff NO MAN DIFF REQ, RBC 3.58 L, MCV 87.4, MCH 29.2, MCHC 33.4, RDW 14.0, MPV 8.8, Gran % 61.8, Lymphocytes % 30.2, Monocytes % 4.2, Eosinophils % 3.3, Basophils % 0.5, Absolute Granulocytes 5.5, Absolute Lymphocytes 2.7, Absolute Monocytes 0.4, Absolute Eosinophils 0.3, Absolute Basophils 0 12/04/17 2100: Sodium Cancelled, Potassium Cancelled, Chloride Cancelled, Carbon Dioxide Cancelled, Anion Gap Cancelled, BUN Cancelled, Creatinine Cancelled, BUN/ Creatinine Ratio Cancelled 12/04/172038: Anion Gap 11, Estimated GFR 40 L, BUN/Creatinine Ratio 15.4 Microbiology 12/05 956 GI: Cryptosporidium Antigen - COLB 12/05 956 GI: Giardia Antigen (AUGUSTUS) - COLB 12/05 956 STOOL: Stool Culture - COLB Assessment/Plan Assessment: Patient is 77 y/o A/A lady w/ presented with nausea and vomiting, abdominal pain or loss of appetite PMH: HTN, HLD, osteoarthritis, laparascopic fundoplicatoin and GERD, pancreatitis, cholecystectomy (opem 1995), chronic pericardial effusion VS, Ph Ex at admission: No fever, BP 11 7/74, OR 85, RR 18, saturating in room air Labs at admission: CBC: Hgb 11.6, WBC 10.7 BEP: Potassium 2.5, sodium 145, chloride 94, bicarbonate 34, anion gap 16, BUN 29, creatinine 1.8, BUN over creatinine 16.1, LFT and lipase insignificant, Imagings at admission: Abdominal/pelvic CT: 1. No acute intra-abdominal or pelvic process seen to explain the patient's acute symptoms. Specifically, no evidence of bowel obstruction, colitis or diverticulitis. 2. Status post cholecystectomy with no evidence of biliary dilatation. 3. Changes related to prior gastric hernia repair and total left hip arthroplasty noted. Patient was admitted to [facility] floor for management of following conditions: [place], voming, loose stools most likely gastroenteritis. Improved. - Contninue to [facility] floor - IV zofran - Continue Gentle IV fluids - clear liq diet for now - IV PPI changed to PO IVÁN VS CKD We dont have Cr for the last 6 months, patient had history of IVÁN vs CKD. Most likely prerenal, BUN/creatinine is borderline. we will get urine lytes, interpretation would be tricky considering patient is on diuretics. Improved: Cr today 1.1 - follow Urine analysis - continue gentle hydration - Urine lytes - Hold diuretics for now Hypokalemia, hypochloremic, metabolic alkalosis Metabolic alkalosis Most likely a setting of multiple vomiting. K repleted -Gentle IV fluids with NS -we will follow Chronic medical conditions: we will continue home medication except as noted above [facility] health healthy DVT PPx: Problem List: 1. Nausea vomiting and diarrhea 2. Acute kidney injury Pain Ratin Pain Location: abdominal Pain Goal: Pain 4 or less Pain Plan: Continue current plan Tomorrow's Labs & Rationales: BEP
[2017-12-05 14:13] VITALS: BP 108/68
--- NOTE | 2017-12-05 17:10 | Patient Discharge Instructions ---
Discharge Instructions General Discharge Information You were seen/treated for: Gastroenteritis IVÁN Electrolyte abnormalities Watch for these problems: Severe abdominal pain, diarrhea, lightheadedness, chest pain, headache or worsening of any other symptoms Special Instructions: Please follow with your PCP within one week of discharge. Please follow with your life skills teacher within 1 week of discharge. Please note that several of her medications have been changed Please come to back to hospital if symptoms worsen Diet Continue normal diet: No Recommended Diet: Heart Healthy Activity Full Activity/No Limits: No Activity Self Limited: Yes Acute Coronary Syndrome Inclusion Criteria At DC or during hospital stay patient has or had the following: ACS DIAGNOSIS No Discharge Core Measures Meds if any: Prescribed or Continued at Discharge Meds if any: NOT Prescribed or Continued at Discharge Congestive Heart Failure Inclusion Criteria At DC or during hospital stay patient has or had the following: CHF DIAGNOSIS No Discharge Core Measures Meds if any: Prescribed or Continued at Discharge Meds if any: NOT Prescribed or Continued at Discharge Cerebrovascular accident Inclusion Criteria At DC or during hospital stay patient has or had the following: CVA/TIA Diagnosis No Discharge Core Measures Meds if any: Prescribed or Continued at Discharge Meds if any: NOT Prescribed or Continued at Discharge Venous thromboembolism Inclusion Criteria VTE Diagnosis No VTE Type NONE VTE Confirmed by (Test) NONE Discharge Core Measures - Per Current guidelines, there needs to be overlap - treatment for the first 5 days of Warfarin therapy. - If discharged on Warfarin prior to 5 days of - overlap therapy, the patient will need to be - assessed for post discharge needs including - *Post discharge parental anticoagulation - *Warfarin and/or parental anticoagulation education - *Follow up date to check INR post discharge At least 5 days overlap therapy as Inpatient No Meds if any: Prescribed or Continued at Discharge Note: Overlap Therapy is Warfarin and Anticoagulant Meds if any: NOT Prescribed or Continued at Discharge
[2017-12-05 22:15] VITALS: BP 100/70
[2017-12-06 05:59] VITALS: BP 128/62
--- NOTE | 2017-12-06 09:07 | PN- Housestaff ---
See Addendum Subjective Follow-up For: Gastroenteritis IVÁN Vs CKD Hyperkalemia-resolved Chronic pericardial effusion Subjective: Patient was seen and examined at bedside. She reports doing okay. No further episodes of loose stools. She has some 'soreness' in her belly. Offers no complaints. Review of Systems Constitutional: Reports: no symptoms. Objective Last 24 Hrs of Vital Signs/I&O Vital Signs Date Time Temp Pulse Resp B/P B/P Pulse O2 O2 Flow FiO2 Mean Ox Delivery Rate 12/06 1433 98.1 73 20 100/68 96 Room Air 12/06 0940 74 126/68 12/06 0559 98.1 70 20 128/62 95 Room Air 12/05 2215 98.1 75 20 100/70 95 Intake & Output 12/06 1600 12/06 0800 12/06 0000 Intake Total 720 120 610 Output Total 600 300 Balance 120 120 310 Intake, IV 10 Intake, Oral 720 120 600 Number 1 Bowel Movements Output, Urine 600 300 Physical Exam General Appearance: Alert, Oriented X3, Cooperative, No Acute Distress Skin: No Rashes, No Breakdown Skin Temp/Moisture Exam: Warm/Dry Sepsis Skin Exam (color): Normal for Ethnicity HEENT: Atraumatic Cardiovascular: Normal S1, Normal S2, No Murmurs Lungs: Clear to Auscultation, Normal Air Movement Abdomen: Soft, mild tenderness Neurological: Normal Speech Extremities: No Edema Assessment/Plan Assessment: Patient is 77 y/o A/A lady w/ presented with nausea and vomiting, abdominal pain or loss of appetite PMH: HTN, HLD, osteoarthritis, laparascopic fundoplicatoin and GERD, pancreatitis, cholecystectomy (opem 1995), chronic pericardial effusion Assessment and Plan: [place], [place], loose stools most likely gastroenteritis. Resolved - IV zofran prn - patient tolerating oral diet well. - oral PPI IVÁN * Patient likely had IVÁN on admission which has resolved. * Her labs from admission are suspicious for CKD. However, serum chemistries from today are unremarkable. Hypokalemia, hypochloremic, metabolic alkalosis resolved. [facility] healthy DVT PPx: ALPS and Heparin SC x3 Problem List: 1. Hypokalemia Pain Ratin Pain Location: none Pain Goal: Remain pain free Pain Plan: none Tomorrow's Labs & Rationales: CBC
[2017-12-06 14:33] VITALS: BP 100/68
[2017-12-06 22:20] VITALS: BP 116/60
[2017-12-07 05:55] VITALS: BP 102/64
[2017-12-07 08:52] LABS: ABSOLUTE BASOPHIL COUNT 0 /CUMM (0.0-0.2); ABSOLUTE EOSINOPHIL COUNT 0.3 /CUMM (0.0-0.7); ABSOLUTE GRANULOCYTE CT 5.3 /CUMM (1.4-6.5); ABSOLUTE LYMPH COUNT 2.8 /CUMM (1.2-3.4); ABSOLUTE MONOCYTE COUNT 0.2 /CUMM (0.10-0.60); BASOPHIL % 0.4 % (0.0-2.0); GRANULOCYTE % 61.6 % (42.2-75.2); HEMATOCRIT 32.4 % (37-47); MEAN CORPUSCULAR HGB CONC 33.5 G/DL (33.0-37.0); MEAN CORPUSCULAR VOLUME 86.6 FL (81.0-99.0); MEAN PLATELET VOLUME 9.2 FL (7.4-10.4); PLATELET COUNT 208 /CUMM (130-400); RBC DISTRIBUTION WIDTH 14.2 % (11.5-14.5); RED BLOOD CELL CT 3.74 /CUMM (4.20-5.40); WHITE BLOOD CELL COUNT 8.6 /CUMM (4.8-10.8)
[2017-12-07 09:27] VITALS: BP 116/68
--- NOTE | 2017-12-07 09:38 | PN- Housestaff ---
See Addendum Subjective Follow-up For: Gastroenteritis IVÁN on CKD Hyperkalemia-resolved Chronic pericardial effusion Subjective: Patient was seen and examined. Reports doing okay. No active complaints Review of Systems Constitutional: Reports: no symptoms. Objective Last 24 Hrs of Vital Signs/I&O Vital Signs Date Time Temp Pulse Resp B/P B/P Pulse O2 O2 Flow FiO2 Mean Ox Delivery Rate 12/07 0927 80 116/68 12/07 0555 98.0 76 20 102/64 95 Room Air 12/06 2220 98.1 72 20 116/60 96 Room Air 12/06 1433 98.1 73 20 100/68 96 Room Air Intake & Output 12/07 1600 12/07 0800 12/07 0000 Intake Total 120 600 Output Total 1000 651 Balance -880 -51 Intake, Oral 120 600 Number 0 1 Bowel Movements Output, Stool 1 Output, Urine 1000 650 Physical Exam General Appearance: Alert, Oriented X3, Cooperative, No Acute Distress Skin: No Rashes, No Breakdown Skin Temp/Moisture Exam: Warm/Dry Sepsis Skin Exam (color): Normal for Ethnicity HEENT: Atraumatic Cardiovascular: Normal S1, Normal S2, No Murmurs Lungs: Clear to Auscultation, Normal Air Movement Abdomen: Soft, No Tenderness Neurological: Normal Speech Extremities: No Edema Assessment/Plan Assessment: Patient is 77 y/o A/A lady w/ presented with nausea and vomiting, abdominal pain or loss of appetite PMH: HTN, HLD, osteoarthritis, laparascopic fundoplicatoin and GERD, pancreatitis, cholecystectomy (opem 1995), chronic pericardial effusion Assessment and Plan: [place], [place], loose stools most likely gastroenteritis. Resolved - IV zofran prn - patient tolerating oral diet well. - oral PPI - patient stable to be discharged. IVÁN * Patient likely had IVÁN on admission which has resolved. * She is stable to go home. Hypokalemia, hypochloremic, metabolic alkalosis resolved. [facility] healthy DVT PPx: ALPS and Heparin SC x3 Problem List: 1. Acute kidney injury Pain Ratin Pain Location: none Pain Goal: Remain pain free Pain Plan: none Tomorrow's Labs & Rationales: none
--- NOTE | 2017-12-08 09:01 | Discharge Summary ---
Visit Information Visit Dates Admission Date: 12/04/17 Discharge Date: 12/07/17 Hospital Course Course Attending Physician: Taylor Greene MD [facility]: Patient is 77 y/o A/A lady w/ presented with nausea and vomiting, abdominal pain or loss of appetite PMH: HTN, HLD, osteoarthritis, laparascopic fundoplicatoin and GERD, pancreatitis, cholecystectomy (opem 1995), chronic pericardial effusion VS, Ph Ex at admission: No fever, BP 11 7/74, [place] 85, RR 18, saturating in room air Labs at admission: CBC: Hgb 11.6, WBC 10.7 BEP: Potassium 2.5, sodium 145, chloride 94, bicarbonate 34, anion gap 16, BUN 29, creatinine 1.8, BUN over creatinine 16.1, LFT and lipase insignificant, Imagings at admission: Abdominal/pelvic CT: 1. No acute intra-abdominal or pelvic process seen to explain the patient's acute symptoms. Specifically, no evidence of bowel obstruction, colitis or diverticulitis. 2. Status post cholecystectomy with no evidence of biliary dilatation. 3. Changes related to prior gastric hernia repair and total left hip arthroplasty noted. Patient was admitted to [facility] floor for management of following conditions: [place], [place], loose stools Most likely gastroenteritis. Patient received IV Zofran for nausea. Genitalia fluids were administered. Stool exams/culture didn't reveal any invasive pathogen. With improvement patient was started on clear liquid diet. Initially IV PPI once administered which was changed to by mouth PPI later. With Improvement patient was stable for discharge. IVÁN VS CKD We didnot have Cr for the last 6 months, patient had history of CKD. The recent increase in CR was most likely prerenal azotemia. Diuretics were held. With administration of IV fluids the Cr number was improved. Hypokalemia, hypochloremic, metabolic alkalosis Metabolic alkalosis, most likely a setting of multiple vomiting. K was repleted. Chronic medical conditions: we will continue home medication except as noted above Patient was discharged with recommnedations below. Allergies: Coded Allergies: Penicillins (RASH 12/04/17) Disposition Summary Disposition Principal Diagnosis: Gastroenteritis Additional Diagnosis: IVÁN Vs CKD Hypok-resolved Chronic pericardial effusion Discharge Disposition: home health services Discharge Instructions General Discharge Information Code Status: Full Code Patient's Diet: heart healthy Patient's Activity: as tolerated Follow-Up Instructions/Appts: Please follow with your PCP within one week of discharge. Please follow with your chief dispatcher within 1 week of discharge. Please note that several of her medications have been changed Please come to back to hospital if symptoms worsen Medications at Discharge Discharge Medications: Stop taking the following medications: Polyethylene Glycol 3350 (Miralax) 17 GRAM POWD.PACK ORAL DAILY Celecoxib (Celebrex) 100 MG CAPSULE ORAL TWICE DAILY Qty = 60 Amlodipine Besylate (Amlodipine Besylate) 10 MG TABLET ORAL DAILY Qty = 90 Furosemide (Lasix) 20 MG TABLET ORAL DAILY Qty = 7 Continue taking these medications: Multivitamin (Daily Value) 1 EACH TABLET 1 Tablet ORAL DAILY Comments: NOT GIVEN IN HOSPTIAL Ergocalciferol (Vitamin D2) (Vitamin D2) 50,000 UNIT CAPSULE 1 Capsule ORAL Once a Week Comments: NOT GIVEN IN HOSPITAL Atenolol/Chlorthalidone (Atenolol-Chlorthalidone 50-25) 50 MG-25 MG TABLET 1 Tablet ORAL DAILY Qty = 90 Comments: Last Taken:12/07/17 Time:9:27 AM Rosuvastatin Calcium (Crestor) 10 MG TABLET 1 Tablet ORAL DAILY Qty = 90 Comments: Last Taken: LIPITOR GIVEN IN HOSPITAL 12/06/17 Time: 4:06 PM Pantoprazole Sodium (Pantoprazole Sodium) 40 MG TABLET.DR 1 Tablet ORAL DAILY Qty = 90 Comments: Last Taken:PRILOSEC GIVEN 12/07/17 Time:6:54 AM Potassium Chloride (Potassium Chloride) 10 MEQ TABLET.ER 1 Tablet ORAL DAILY Qty = 90 Comments: NOT GIVEN IN HOSPITAL Copies To: Marilynn Elizabeth APRN, MD,Haroldo Attending MD Review Statement Documenting Attending: Taylor Greene MD Other Findings: Patient medicaly stable for discharge and follow up with PCP in 1 week of discharge.
== END 2017-12-07 12:00 | disposition home health service (06) | DRG 683 ==
LOC: ERH 10:20 → 2NB 14:41 → ERHI 14:41 → ENRESERV 16:11 → ENTRNSPT 17:33 → EDTRNSPTSTS 17:44 → 2NB 17:47 → CMPTRNSPT 18:21 → ENPENDDIS 12-07 09:57 → ENTRNSPT 12-07 11:49 → EDTRNSPTSTS 12-07 11:52 → 2NB 12-07 12:00 → CMPTRNSPT 12-07 12:23
PROVIDERS: Emergency Medicine; Internal Medicine; Student in an Organized Health Care Education/Training Program
DX: N17.9 Acute kidney failure, unspecified (principal); E87.3 Alkalosis; E87.8 Other disorders of electrolyte and fluid balance, not elsewhere classified; I31.3 Pericardial effusion (noninflammatory); E86.0 Dehydration; E87.6 Hypokalemia; I10 Essential (primary) hypertension; A08.4 Viral intestinal infection, unspecified; E78.5 Hyperlipidemia, unspecified; M19.90 Unspecified osteoarthritis, unspecified site
CPT/HCPCS: 2NSBP; 36415; 36592; 74176; 81003; 82436; 83630; 87045; 87328; 87329; 87804; 87804-59; 93005; 93010; 96374; 96375; J0131; J1644; J2405